=== PATIENT | female | born 1955 | race Hispanic/Latino ===

== ENCOUNTER 2017-07-14 08:18 | Observation (INO) | payer BC ==
[2017-07-14] MEDS ORDERED: ASPIRIN PO NR (08:55)
[2017-07-14] MEDS ORDERED: NACL 0.9% 500 ML 500 ML IV SCH (09:00)
[2017-07-14 09:46] LABS: Basophils # (Auto) 0.1 K/mm3 (0.0-0.1); Basophils % (Auto) 0.7 % (0.0-1.8); Eosinophils # (Auto) 0.1 K/mm3 (0.0-0.4); Eosinophils % (Auto) 1.3 % (0.0-4.3); Hematocrit 39.4 % (30.3-42.9); Hemoglobin 12.9 gm/dl (10.1-14.3); Lymphocytes # (Auto) 1.5 K/mm3 (1.2-5.4); Lymphocytes % (Auto) 15.8 % (13.4-35.0); Mean Corpuscular HGB Conc 33 % (30-34); Mean Corpuscular Hemoglobin 27 pg (28-32); Mean Corpuscular Volume 81 fl (79-97); Monocytes # (Auto) 0.6 K/mm3 (0.0-0.8); Monocytes % (Auto) 5.7 % (0.0-7.3); Platelet Count 221 K/mm3 (140-440); Red Blood Count 4.85 M/mm3 (3.65-5.03); Red Cell Distribution Width 17.1 % (13.2-15.2)
[2017-07-14 09:58] LABS: BUN/Creatinine Ratio 29; Blood Urea Nitrogen 23 mg/dL (7-17); Calcium 8.7 mg/dL (8.4-10.2); Hemolysis Index 6
[2017-07-14] MEDS ORDERED: CALAN ONE (10:23)
[2017-07-14] MEDS ORDERED: HEPARIN/NS 5000 UNIT/500ML(CATH LAB) 1,000 ML IR ONE (10:23)
[2017-07-14] MEDS ORDERED: VERSED ONE (10:24)
[2017-07-14] MEDS ORDERED: NITROGLYCERIN SYRINGE 3 ML ONE (10:24)
[2017-07-14] MEDS ORDERED: SUBLIMAZE ONE (10:24)
[2017-07-14] MEDS ORDERED: XYLOCAINE 2% INFILTRATI ONE (10:24)
[2017-07-14 10:49] LABS: INR 0.82 (0.87-1.13)
[2017-07-14] MEDS: HEPARIN 10,000 UNITS/10 ML ONE ×3 (11:10→11:53)
[2017-07-14] MEDS ORDERED: AGGRASTAT DRIP (12.5 MG/250 ML) 12,500 MCG/250 ML BAG IV ONE (11:43)
[2017-07-14] MEDS ORDERED: EFFIENT PO ONE (12:07)
[2017-07-14] MEDS ORDERED: ALUM-MAG HYDROX-SIMETH 200-200-20MG/5ML ONE (12:09)
--- NOTE | 2017-07-14 12:49 | Cardiac Catherization Report ---
REFERRING PHYSICIAN: Cyril Benavides MD INDICATION FOR PROCEDURE: The patient is a pleasant 61-year-old female with a history of proximal LAD disease, status post PCI with DS at [facility] in August of last year. She presents to my office yesterday with crescendo unstable angina with accelerating symptoms. She is referred for left heart catheterization this morning. She is compliant with her medications. She is on multiple antianginals. Risks, benefits, alternatives discussed at length prior to obtaining informed consent. PROCEDURE IN DETAIL: The patient was brought to the catheterization lab in a postabsorptive state, prepped and draped in sterile fashion. Tanner's test in right hand is normal. A 2 mL of 2% lidocaine used to anesthetize the right wrist. A standard 6-Grenadian hydrophilic sheath used to cannulate the right radial artery via modified Seldinger technique. All exchanges performed to exchange a J-tip guidewire. JL3.5 catheter used to engage left main. No dampening or ventricularization. Cineangiography performed in all projections. JR4 catheter was used to cross the aortic valve under fluoroscopic guidance. Left ventriculography free from 30 SALMERON and 30 FAROESE projections via hand injections, catheter flushed. Manual pullback performed with continuous pressure monitoring. Catheter used to engage the right coronary. No dampening or ventricularization. Cineangiography performed in all projections. DATA: Aortic pressure is 140/70, LV pressure is 140. LVP of 20 mmHg. Left ventriculography revealed normal systolic performance with estimated ejection fraction of 55-60%. No evidence of aortic stenosis. CORONARY ANATOMY: This is a codominant system. Left main is a short vessel, no significant disease, bifurcates left anterior descending and left circumflex. Left circumflex is a moderate large vessel. Left PDA. No significant disease. No obstructive disease, 25% mid left circumflex identified. LAD is a moderate to large vessel, courses anterior intergroove, wraps around the apex. There is a stent in the proximal LAD, which is widely patent. The stent jails a second diagonal with a 99% subtotal occlusion proximally. It is a very small vessel just proximal to the stent with what appears to be a 10-20% stenosis. There is a first diagonal, which appears to be vessel, it is very small, but has a 99% what appears to be ulcerated stenosis proximally. The right coronary is a moderate sized vessel, courses AV groove, distally bifurcates in the posterior and posterolateral branch, no discrete stenosis identified. At this point, considering she has accelerating continuing angina. I believe the first diagonal is likely a he culprit vessel. It may be a combination of the 2 diagonals. These vessels are too small to perform FFR on form of physiologic assessment, but they I believe are responsible and culprit for set symptoms of unstable angina after thrombotic nature of the first diagonal is noted. At this point, we turned our attention to PCI. I directly supervised the administration of moderate sedation with fentanyl and Versed from 11:02 to 12:05. There were no immediate complications. PCI DETAILS: EBU 3.5 guide used to engage the left main without difficulty. No dampening noted. Additional heparin was given. Abnormal ACT is confirmed. The patient is already on aspirin and Effient. We used a Corning wire and placed into the distal LAD. First I went ahead and performed intravascular ultrasound of the entire LAD including the proximal. The stent in the proximal LAD is widely patent. The area of the band just proximal to the stent is widely patent, mild concentric disease with a mean luminal area of approximately 5-6 mm square. No obstructive disease identified. There are angiographically were on ultrasound. At this point, I turned my attention two small diagonals. She did have an episode of chest pain on the table. First, I wired the first diagonal with the Corning wire. I used a 1.5 x 6 balloon to predilate the proximal first diagonal at 8 MAYANK for 30 seconds. Excellent angiographic result 20% residual. I believe this vessel is too small to stent HANG 3 flow with no dissection. Next, I used Corning wire to cross through the stent and wire. The jailed second diagonal with 99% subtotal occlusion. I dilated that vessel with a 1.5 x 8 compliant balloon for 30 seconds at 12 MAYANK. Excellent angiographic result, 0% residual stenosis, no dissection. Final angiogram reveals improved angiographic characteristics, 0% residual stenosis in the second diagonal, 20% residual stenosis in the first diagonal. The patient is now chest pain free. At this point, we stopped the procedure. No immediate complications were noted. The patient loaded with Effient and aspirin. CONCLUSIONS: 1. Small vessel epicardial coronary disease as aforementioned the setting of unstable angina/acute coronary syndrome. A. Patent proximal LAD stent B. A 25% stenosis proximal to LAD stent nonobstructive confirmed by intravascular ultrasound. C. Successful PTCA of 99% at the thrombotic subtotal occlusion of very small first diagonal with excellent final angiographic result 20% residual stenosis. 2. Successful PTCA of second diagonal a very small vessel with successful angiographic result. Both these diagonals were re too small to stent. 3. Patent left main, left circumflex and right coronary. 4. Normal LV function, estimated ejection fraction of 55-60%. At this point, the patient is clinically improved, chest pain free now, continue aspirin, statin therapy. We will add Imdur therapy. She was given a single bolus of Aggrastat. We will admit to tele for observation and standard radial care. Follow up with me in the office. Results of procedure explained in length to the patient and family. All questions and concerns were addressed. JOB# [id number] TAVO/ADRIANA
[2017-07-14] MEDS: RANEXA ER PO SCH (22:50)
[2017-07-14] MEDS: HumaLOG SUB-Q SCH (22:55)
[2017-07-14] MEDS: LOPRESSOR PO SCH (23:20)
[2017-07-15 05:46] LABS: Basophils # (Auto) 0.1 K/mm3 (0.0-0.1); Basophils % (Auto) 0.7 % (0.0-1.8); Eosinophils # (Auto) 0.1 K/mm3 (0.0-0.4); Eosinophils % (Auto) 1.3 % (0.0-4.3); Hematocrit 38.9 % (30.3-42.9); Hemoglobin 12.7 gm/dl (10.1-14.3); Lymphocytes # (Auto) 1.5 K/mm3 (1.2-5.4); Lymphocytes % (Auto) 15.6 % (13.4-35.0); Mean Corpuscular HGB Conc 33 % (30-34); Mean Corpuscular Hemoglobin 27 pg (28-32); Mean Corpuscular Volume 81 fl (79-97); Monocytes # (Auto) 0.6 K/mm3 (0.0-0.8); Monocytes % (Auto) 6.6 % (0.0-7.3); Platelet Count 218 K/mm3 (140-440); Red Blood Count 4.81 M/mm3 (3.65-5.03); Red Cell Distribution Width 17.2 % (13.2-15.2)
[2017-07-15 06:28] LABS: Creatine Kinase MB 1.7 ng/mL (0.0-4.0)
[2017-07-15 06:35] LABS: BUN/Creatinine Ratio 28; Blood Urea Nitrogen 17 mg/dL (7-17); Calcium 8.8 mg/dL (8.4-10.2); Hemolysis Index 5
[2017-07-15] MEDS: HumaLOG SUB-Q SCH ×2 (08:00→11:30)
--- NOTE | 2017-07-15 08:17 | XRay Report ---
Single view chest: History: Post PCI. Findings: Cardiomegaly. trachea is midline. No consolidation, pneumothorax or pleural effusion. Impression: Cardiomegaly. No acute lung changes.
--- NOTE | 2017-07-15 08:48 | Short Stay Summary ---
Short Stay Documentation Date of service: 07/15/17 - History H&P: obtained from office - Allergies and Medications Current Medications: Allergies adhesive tape Allergy (Unverified 07/14/17 08:20) Hives Penicillins Allergy (Unverified 07/14/17 08:20) Hives Home Medications Medication Instructions Recorded Confirmed Last Taken Type Empagliflozin/Metformin HCl 2 tab PO DAILY 07/14/17 07/14/17 07/14/17 06:00 History [Synjardy Xr 12.5-1,000 mg Tab] 2 tabs Gabapentin [Neurontin] 300 mg PO HS 07/14/17 07/14/17 07/13/17 History 300mg ISOSORBIDE MONOnitrate [Imdur ER] 30 mg PO DAILY 07/14/17 07/14/17 07/13/17 History 30mg Insulin Lispro [Humalog 100 12 units SQ TID 07/14/17 07/14/17 07/13/17 History UNITS/ML Kwikpen] 12units Ipratropium/Albuterol Sulfate 2 puff INHALATION PRN PRN 07/14/17 07/14/17 History [Combivent Respimat] 1 puff Lisinopril [Zestril TAB] 10 mg PO DAILY 07/14/17 07/14/17 07/13/17 History 10mg Metoprolol [Lopressor TAB] 25 mg PO BID 07/14/17 07/14/17 07/13/17 History 25mg Mometasone/Formoterol [Dulera 200 1 dose INHALATION BID 07/14/17 07/14/17 History Mcg/5 Mcg Inhaler] 1 dose Prasugrel HCl 10 mg PO DAILY 07/14/17 07/14/17 07/13/17 History 10mg Ranolazine [Ranexa] 500 mg PO BID 07/14/17 07/14/17 07/13/17 History 500mg Trazodone HCl 150 mg PO HS 07/14/17 07/14/17 07/13/17 History 150mg Active Medications Aspirin (Baby Aspirin) 81 mg PO QDAY CELINA Insulin Human Lispro (Humalog) 0 unit SUB-Q ACHS CELINA; Protocol Last Admin: 07/14/17 22:55 Dose: 3 unit Isosorbide Mononitrate (Imdur) 30 mg PO DAILY [facility] Lisinopril (Zestril) 10 mg PO DAILY [facility] Metoprolol Tartrate (Lopressor) 25 mg PO BID [facility] Last Admin: 07/14/17 23:20 Dose: 25 mg Prasugrel (Effient) 10 mg PO QDAY [facility] Ranolazine (Ranexa Er) 500 mg PO BID [facility] Last Admin: 07/14/17 22:50 Dose: 500 mg - Brief post op/procedure progress note Date of procedure: 07/14/17 Pre-op diagnosis: chest pain Procedure: left heart cath and balloon angioplasty - Hospital course Hospital course: The patient is a 61 year old female who presented to Dr. Jeremiah Odom's office on 07/13/17 with complaints of crescendo chest pain. She has a very strong family H/ O PCI of proximal LAD last year at [facility] with JUSTIN and thus was referred for LHC. She presented as an outpatient on 07/14 and underwent LHC and balloon angioplasty to diagonal 1 and diagonal 2. Both vessels were too small to stent. She was observed on telemetry overnight and remained chest pain free. She will be discharged home today in stable condition on ASA, effient, imdur, ranexa and crestor. Follow up with Dr. Jeremiah Odom in the [place] office on 07/27/17 at 1 :30 pm. - Disposition Condition at discharge: Stable - Discharge Diagnoses (1) CAD (coronary artery disease) Status: Acute (2) S/P PTCA (percutaneous transluminal coronary angioplasty) Status: Acute (3) Unstable angina Status: Resolved Short Stay Discharge Plan Activity: advance as tolerated Diet: low fat, low cholesterol Wound: keep clean and dry Follow up with: OMAR SHAW NP [Primary Care Provider] - 7 Days JEREMIAH ODOM MD [Staff Physician] - 07/27/17 1:30 pm ([place] office) Prescriptions: Aspirin [Aspirin BABY CHEW TAB] 81 mg PO QDAY #30 tab.chew Rosuvastatin Calcium [Crestor] 20 mg PO QHS #30 tablet
[2017-07-15 08:52] VITALS: BP 122/55
[2017-07-15] MEDS ORDERED: ZESTRIL PO SCH (10:00)
[2017-07-15] MEDS ORDERED: EFFIENT PO SCH (10:00)
[2017-07-15] MEDS ORDERED: IMDUR PO SCH (10:00)
[2017-07-15] MEDS ORDERED: BABY ASPIRIN PO SCH (10:00)
[2017-07-15] MEDS: RANEXA ER PO SCH (10:45)
[2017-07-15] MEDS: LOPRESSOR PO SCH (10:45)
== END 2017-07-15 13:01 | disposition home or self-care (01) ==
LOC: CATHLABREC 08:18 → 4A 12:28
PROVIDERS: ADMIT Internal Medicine; ATTEND Internal Medicine
DX: I25.110 Atherosclerotic heart disease of native coronary artery with unstable angina pectoris (principal); J44.9 Chronic obstructive pulmonary disease, unspecified; E11.9 Type 2 diabetes mellitus without complications; E78.2 Mixed hyperlipidemia; E66.9 Obesity, unspecified; G47.33 Obstructive sleep apnea (adult) (pediatric); I44.69 Other fascicular block; Z87.891 Personal history of nicotine dependence; Z82.49 Family history of ischemic heart disease and other diseases of the circulatory system; Z68.42 Body mass index [BMI] 45.0-49.9, adult
CPT/HCPCS: 36415; 71045; 80048; 82550; 82553; 82962; 84484; 85025; 85347; 85610; 92920; 92921; 92978; 93005; 93010; 93458; 96372; C1725; C1753; C1769; C1887; C1894; G0378; J1644; J2250; J3010; J3246; J7040; J1815; Q9967